=== PATIENT | female | born 1990 | race Caucasian/White ===

== ENCOUNTER → 2016-08-04 | Day surgery (SDC) | payer OTHER ==
--- NOTE | 2016-07-06 11:05 | History & Physical Pre-Op ---
General Information and HPI History of Present Illness: Patient is a 26-year-old 2 para 2 impacted Mirena IUD and desires removal and replacement with light A IUD Allergies/Medications Allergies: Coded Allergies: diphenhydramine (From BENADRYL) (Severe, HIVES 07/05/16) Sulfa (Sulfonamide Antibiotics) (CHILDHOOD 07/05/16) Home Med list [METHADONE] 145 MG HX NARCOTIC ABUSE (Reported) Vilazodone (Viibryd) 40 MG TABLET 1 TAB PO DAILY DEPRESSION (Reported) Past History Surgical History Pertinent Surgical History: none Review of Systems Review of Systems Constitutional: Reports: no symptoms. EENTM: Reports: no symptoms. Cardiovascular: Reports: no symptoms. Respiratory: Reports: no symptoms. GI: Reports: no symptoms. Genitourinary: Reports: no symptoms. Musculoskeletal: Reports: no symptoms. Skin: Reports: no symptoms. Neurological/Psychological: Reports: no symptoms. Hematologic/Endocrine: Reports: no symptoms. Immunologic/Allergic: Reports: no symptoms. All Other Systems: Reviewed and Negative Exam & Diagnostic Data Last 24 Hrs of Vital Signs/I&O Vital signs stable Physical Exam: HEENT: Normocephalic atraumatic Chest: Clear to auscultation bilaterally Cardiovascular: Normal S1-S2 abdomen: Within normal limits Extremities: No clubbing cyanosis or Assessment/Plan Assessment/Plan: Impacted IUD Plan: D&C hysteroscopy IUD removal and reinsertion As Ranked By This Provider Problem List: 1. Intrauterine device (IUD) migration
[~2016-08-04] VITALS: Ht 149.9 cm; Wt 74.4 kg
[~2016-08-04] MED LIST: METHADONE; VIIBRYD40 M1 PO
--- NOTE | 2016-08-11 12:41 | Operative Report ---
Operative/Inv Procedure Report Surgery Date: 08/04/16 Name of Procedure: IUD removal and reinsertion Pre-Operative Diagnosis: Impacted IUD Post-Operative Diagnosis: Same Estimated Blood Loss: scant Surgeon/Felling Machine Operator: JONG BEST MD Anesthesia: moderate sedation Operative/Procedure Note Note: The patient was brought to the operating room and placed on the OR table in the dorsal supine position. She was given adequate anesthesia and repositioned in modified dorsal lithotomy. She was prepped and draped in usual sterile fashion. A weighted speculum was inserted in the vagina with help of a Alex retractor single-tooth tenaculum was attached to the anterior lip of the cervix. The strings of the IUD were noted and it was removed without complication. A light let IUD was then placed into the uterus safely. The patient was then awakened after isthmus removed and sent to recovery. All needle, sponge, and management counts were correct at the end the procedure 2.
== END ==
LOC: STS 07-07 05:12
DX: T83.39XA Other mechanical complication of intrauterine contraceptive device, initial encounter (principal); F17.200 Nicotine dependence, unspecified, uncomplicated; Z79.891 Long term (current) use of opiate analgesic; Z79.899 Other long term (current) drug therapy
CPT/HCPCS: 81025; J0131; J2250